=== PATIENT | female | born 1945 | race African-American/Black ===

== ENCOUNTER 2017-08-25 14:43 | Inpatient (IN) | payer OTHER, MEDICARE ==
[~2017-08-25] VITALS: Ht 175.3 cm; Wt 244.2 kg
[~2017-08-25 14:43] MED LIST: ASPIRIN ADULT L81 M5 PO; BENAZEPRIL HYDR20 M1 PO; CALCIUM600 M1 PO; CENTRUM SILVER1 EACH PO; HYDRO PAR25 MG PO; METFORMIN HCL500 MG PO; METFORMIN500 MG PO; METOPROLOL TART25 M1 PO; PIOGLITAZONE HY45 MG PO; VENTOLIN INHALER; VICES PO
[2017-08-25 17:12] LABS: CALCIUM 9.3 mg/dL (8.5-10.1); CARBON DIOXIDE 34.3 mmol/L (21-32); CREATININE SERUM 1.4 mg/dL (0.6-1.0); POTASSIUM SERUM 5.3 mmol/L (3.5-5.1)
[2017-08-25 17:14] LABS: BASOPHIL % 0.1 % (0-2); PLATELET COUNT 221 x10^3mcL (130-400)
[2017-08-25 17:17] LABS: BILIRUBIN TOTAL 0.4 mg/dL (0.20-1.00); TOTAL PROTEIN, SERUM 8.2 g/dL (6.4-8.2)
[2017-08-25 17:21] LABS: ALBUMIN 3.1 g/dL (3.4-5.0)
[2017-08-25] MEDS ORDERED: NOR10T PO (18:09)
[2017-08-25] MEDS ORDERED: NEU300 PO (18:11)
[2017-08-25 19:54] VITALS: BP 174/66
[2017-08-25 21:53] LABS: PHOSPHOROUS 3.4 mg/dL (2.5-4.9)
[2017-08-25 22:03] LABS: T3 TOTAL 1.04 ng/mL
[2017-08-25 22:05] LABS: FREE T4 1.37 ng/dL (0.76-1.46); FREE THYROXINE INDEX 3.8 ug/dL (1.4-4.5); T4(THYROXINE) 10.5 ug/dL (4.7-13.3)
[2017-08-26 01:17] LABS: microscopic required? YES; urine erythrocyte 2+ (NEGATIVE)
[2017-08-26 05:22] VITALS: BP 173/62
[2017-08-26 05:34] LABS: CALCIUM 8.5 mg/dL (8.5-10.1); CARBON DIOXIDE 32.1 mmol/L (21-32); CREATININE SERUM 1.2 mg/dL (0.6-1.0); POTASSIUM SERUM 4.4 mmol/L (3.5-5.1)
[2017-08-26 09:51] VITALS: BP 133/67
[2017-08-26 13:05] VITALS: BP 176/78
[2017-08-26 16:24] VITALS: BP 175/71
[2017-08-26 18:22] VITALS: BP 100/52
== END 2017-08-26 19:00 | disposition home or self-care (01) | DRG 144 ==
LOC: ED 14:43 → DU 18:23
PROVIDERS: Emergency Medicine; ADMIT Family Medicine
DX: R06.02 Shortness of breath (principal); N17.0 Acute kidney failure with tubular necrosis; E44.0 Moderate protein-calorie malnutrition; D68.69 Other thrombophilia; Z68.45 Body mass index [BMI] 70 or greater, adult; E11.22 Type 2 diabetes mellitus with diabetic chronic kidney disease; E87.5 Hyperkalemia; E66.01 Morbid (severe) obesity due to excess calories; M17.0 Bilateral primary osteoarthritis of knee; Z87.891 Personal history of nicotine dependence; Z79.84 Long term (current) use of oral hypoglycemic drugs; N39.0 Urinary tract infection, site not specified; I12.9 Hypertensive chronic kidney disease with stage 1 through stage 4 chronic kidney disease, or unspecified chronic kidney disease; N18.9 Chronic kidney disease, unspecified
CPT/HCPCS: 36600; 78598; 82962; 83880; 84439; 85378; A9540; J0696; J1644; J3490; J7030; Q0092